=== PATIENT | female | born 1975 | race Caucasian/White ===

== ENCOUNTER 2018-11-01 14:06 | Emergency (ER) | payer OTHER ==
[~2018-11-01] VITALS: Ht 167.6 cm; Wt 72.2 kg
[~2018-11-01 14:06] MED LIST: FLUT1DIS4 INH
--- NOTE | 2018-11-01 14:33 | NUR ---
Brought back directly from Triage. Changed into gowns. Belongings inventoried.
[2018-11-01 15:08] LABS: BASOPHILS % (AUTO) 0.2 % (0-1); EOSINOPHILS # (AUTO) 0.2 X10'3 (0-0.9); EOSINOPHILS % (AUTO) 2.1 % (0-6); HEMATOCRIT 37.3 % (35.0-45.0); HEMOGLOBIN 11.9 g/dl (12.0-16.0); LYMPHOCYTES # (AUTO) 2.7 X10'3 (1.1-4.8); LYMPHOCYTES % (AUTO) 29.1 % (21-51); MEAN CORPUSCULAR HEMOGLOBIN 21.5 PG (27.0-31.0); MEAN CORPUSCULAR HGB CONC 31.8 g/dL (33.0-36.5); MEAN CORPUSCULAR VOLUME 67.6 FL (78-98); MEAN PLATELET VOLUME 8.6 FL (7.4-10.4); MONOCYTES # (AUTO) 0.5 X10'3 (0-0.9); NEUTROPHILS # (AUTO) 5.9 X10'3 (1.8-7.7); NEUTROPHILS % (AUTO) 63.6 % (42-75); PLATELET COUNT 373 X10'3 (140-440); RED BLOOD COUNT 5.52 X10'6 (4.20-5.60); RED CELL DISTRIBUTION WIDTH 17.5 % (11.5-14.5); WHITE BLOOD COUNT 9.3 X10'3 (4.5-11.0)
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
[2018-11-01 15:13] LABS: ALANINE AMINOTRANSFERASE 17 U/L (12-78); ALBUMIN 3.9 G/DL (3.4-5.0); ALBUMIN/GLOBULIN RATIO 1.1 (1.1-1.5); ALKALINE PHOSPHATASE 57 IU/L (46-116); ANION GAP 10 (8-16); ASPARTATE AMINO TRANSFERASE 14 U/L (10-37); BILIRUBIN,TOTAL 0.4 MG/DL (0.1-1.0); BLOOD UREA NITROGEN 14 MG/DL (7-18); BUN/CREATININE RATIO 18.9 (6.6-38.0); CALCIUM 8.7 MG/DL (8.5-10.1); CHLORIDE 103 MMOL/L (99-107); CREATININE 0.74 MG/DL (0.40-0.90); GLUCOSE 90 MG/DL (70-104); POTASSIUM 3.3 MMOL/L (3.5-5.1); SODIUM 141 MMOL/L (135-145); TOTAL CARBON DIOXIDE 27.6 MMOL/L (24-32); TOTAL PROTEIN 7.5 G/DL (6.4-8.2); eGFR 86 ML/MIN
[2018-11-01 15:21] LABS: ETHANOL < 0.010 GM/DL (0.0-0.010)
[2018-11-01 15:47] LABS: ANISOCYTOSIS 1+; MICROCYTOSIS 2+; PLATELET ESTIMATE NORMAL
[2018-11-01 15:48] LABS: ELLIPTOCYTES 1+; SCHISTOCYTES 1+; TEAR DROP CELLS 1+
[2018-11-01 16:02] LABS: URINE HCG NEGATIVE (NEG)
[2018-11-01 16:09] LABS: URINE AMPHETAMINE SCREEN NEGATIVE (Neg); URINE BARBITUATE SCREEN NEGATIVE (Neg); URINE BENZODIAZEPINES SCREEN NEGATIVE (Neg); URINE CANNABINOID SCREEN NEGATIVE (Neg); URINE COCAINE SCREEN NEGATIVE (Neg); URINE METHADONE SCREEN NEGATIVE (Neg); URINE OPIATE SCREEN NEGATIVE (Neg); URINE PHENCYCLIDINE SCREEN NEGATIVE (Neg)
--- NOTE | 2018-11-01 16:13 | NUR ---
Participated in the admission process without event. Family members with patient, sitting around bed. Patient states "I cannot handle what's going on with me. If I don't get some help soon I don't know what I'll do. I can't say I won't try to hurt myself."
[2018-11-01 16:16] LABS: CLARITY,URINE SLIGHTLY CLOUDY (Clear); COLOR,URINE STRAW (Yellow); GLUCOSE, URINE NEGATIVE (Neg); KETONES,URINE NEGATIVE (Neg); LEUKOCYTE ESTERASE ,URINE NEGATIVE (Neg); NITRITES, URINE NEGATIVE (Neg); OCCULT BLOOD,URINE TRACE-LYSED (Neg); PROTEIN,URINE NEGATIVE (Neg); UROBILINOGEN,URINE 0.2 E.U/dL (0.2-1.0)
[2018-11-01 16:18] LABS: UA COLLECTION TYPE CLN CATCH MIDSTREAM
[2018-11-01 16:27] LABS: BACTERIA,URINE FEW /HPF (Neg); MUCUS STRANDS MODERATE /LPF (Neg); RBC,URINE 0-2 /HPF (0-2); SQUAMOUS EPITHELIAL CELL,UR MODERATE /LPF (FEW); WBC,URINE 0-4 /HPF (0-4)
[2018-11-01 18:03] VITALS: BP 119/70
== END 2018-11-01 20:08 | disposition home or self-care (01) ==
LOC: ER 14:06
DX: F22 Delusional disorders (principal); F79 Unspecified intellectual disabilities; R07.89 Other chest pain; R06.02 Shortness of breath; J45.909 Unspecified asthma, uncomplicated; Z79.899 Other long term (current) drug therapy
CPT/HCPCS: 36415; 80053; 80305; 80320; 81001; 81025; 84443; 85025; 99284

== ENCOUNTER 2021-12-21 11:31 | Emergency (ER) | payer MEDICAID, OTHER ==
[~2021-12-21] VITALS: Ht 167.6 cm; Wt 75.0 kg
[2021-12-21 11:57] LABS: BASOPHILS # (AUTO) 0.1 X10'3 (0-0.2); BASOPHILS % (AUTO) 0.8 % (0-1); EOSINOPHILS # (AUTO) 0.2 X10'3 (0-0.9); EOSINOPHILS % (AUTO) 2.4 % (0-6); HEMATOCRIT 33.1 % (35.0-45.0); HEMOGLOBIN 10.6 g/dl (12.0-16.0); LYMPHOCYTES % (AUTO) 23.6 % (21-51); MEAN CORPUSCULAR HEMOGLOBIN 20.4 PG (27.0-31.0); MEAN CORPUSCULAR VOLUME 63.7 FL (78-98); MONOCYTES # (AUTO) 0.6 X10'3 (0-0.9); MONOCYTES % (AUTO) 7.1 % (2-12); NEUTROPHILS # (AUTO) 5.7 X10'3 (1.8-7.7); NEUTROPHILS % (AUTO) 66.1 % (42-75); PLATELET COUNT 362 X10'3 (140-440); RED CELL DISTRIBUTION WIDTH 17.8 % (11.5-14.5); WHITE BLOOD COUNT 8.6 X10'3 (4.5-11.0)
[2021-12-21 12:11] LABS: ALANINE AMINOTRANSFERASE 34 U/L (12-78); ALBUMIN 3.9 G/DL (3.4-5.0); ALBUMIN/GLOBULIN RATIO 1.2 (1.1-1.5); ALKALINE PHOSPHATASE 57 IU/L (46-116); ANION GAP 12 (8-16); ASPARTATE AMINO TRANSFERASE 31 U/L (10-37); BILIRUBIN,TOTAL 0.7 MG/DL (0.1-1.0); BLOOD UREA NITROGEN 10 MG/DL (7-18); BUN/CREATININE RATIO 13.2 (6.6-38.0); CALCIUM 9.1 MG/DL (8.5-10.1); CHLORIDE 105 MMOL/L (99-107); CREATININE 0.76 MG/DL (0.40-0.90); GLUCOSE 91 MG/DL (70-104); POTASSIUM 4.1 MMOL/L (3.5-5.1); SODIUM 143 MMOL/L (135-145); TOTAL CARBON DIOXIDE 26.2 MMOL/L (24-32); TOTAL PROTEIN 7.2 G/DL (6.4-8.2); eGFR 82 ML/MIN
[2021-12-21 12:20] LABS: ETHANOL < 0.010 GM/DL (0.0-0.010)
[2021-12-21 12:28] LABS: ANISOCYTOSIS 1+; MICROCYTOSIS 2+; PLATELET ESTIMATE NORMAL
[2021-12-21 12:29] LABS: ELLIPTOCYTES 1+; HYPOCHROMASIA 1+; LARGE PLATELETS FEW
[2021-12-21 12:30] LABS: TEAR DROP CELLS FEW
[2021-12-21 12:32] LABS: URINE HCG NEGATIVE (NEG)
[2021-12-21 12:44] LABS: URINE AMPHETAMINE SCREEN POSITIVE (Neg); URINE BARBITUATE SCREEN NEGATIVE (Neg); URINE BENZODIAZEPINES SCREEN NEGATIVE (Neg); URINE CANNABINOID SCREEN NEGATIVE (Neg); URINE COCAINE SCREEN NEGATIVE (Neg); URINE METHADONE SCREEN NEGATIVE (Neg); URINE OPIATE SCREEN NEGATIVE (Neg); URINE PHENCYCLIDINE SCREEN NEGATIVE (Neg)
[2021-12-21 12:45] LABS: CLARITY,URINE SLIGHTLY CLOUDY (Clear); COLOR,URINE YELLOW (Yellow); GLUCOSE, URINE NEGATIVE (Neg); KETONES,URINE 15 mg/dl (Neg); LEUKOCYTE ESTERASE ,URINE NEGATIVE (Neg); NITRITES, URINE NEGATIVE (Neg); OCCULT BLOOD,URINE NEGATIVE (Neg); PH,URINE 5.5 (4.8-8.0); PROTEIN,URINE TRACE mg/dl (Neg); UROBILINOGEN,URINE 0.2 E.U/dL (0.2-1.0)
[2021-12-21 12:47] LABS: UA COLLECTION TYPE CLN CATCH MIDSTREAM
[2021-12-21 12:57] LABS: SQUAMOUS EPITHELIAL CELL,UR MANY /LPF (FEW)
[2021-12-21 12:58] LABS: BACTERIA,URINE 1+ /HPF (Neg); MUCUS STRANDS MODERATE /LPF (Neg); RBC,URINE NONE SEEN /HPF (0-2)
--- NOTE | 2021-12-21 14:23 | NUR ---
RECEIVED PT TO BED 25. PT AMBULATED INDEPENDENTLY WITH PCT. PT HAS PERSONAL BELONGINGS. Addendum: 12/22/21 at 1042 by DPHILLIPS PT. AWAKE LYING IN BED RESTING QUIETLY. STAFF WILL CONTINUE TO MONITOR FOR SAFETY.
--- NOTE | 2021-12-21 14:53 | NUR ---
Faxed Packet to [facility].
--- NOTE | 2021-12-21 14:54 | NUR ---
One on one assessment with patient. Pt presents tearful and slightly disorganized. Pt able to identify, date, year and president. Pt denies sucidal thoughts, but then states "if things don't get better." Pt tells junior technical writer "there was so much I wanted to say, but couldn't." "I just need to see the same people and not all the people." Pt states she went to her doctor trying to get anxiety medication, but then saw someone different. This is what pt was referring to. Pt is tearful and keeps repeating "there is a lot going on." "I don't want to keep saying, the more I say the worse it gets." Pt denies A/VH. Pt states she "used to take" and antidepressant. No meds for "a long time."
[2021-12-21] MEDS ORDERED: NO HOME MEDS (15:08)
--- NOTE | 2021-12-21 15:19 | NUR ---
Refaxed packet (did not go through) to [facility].
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
--- NOTE | 2021-12-21 16:30 | NUR ---
Pt resting comfortably, respirations even and unlabored.
--- NOTE | 2021-12-21 17:30 | NUR ---
Pt sitting on side of bed, no distress noted.
--- NOTE | 2021-12-21 19:00 | NUR ---
Pt resdting quietly in bed on left side at this time, no distress noted.
--- NOTE | 2021-12-21 21:05 | NUR ---
Pt ambulated from room to restroom without issue, no distress noted.
--- NOTE | 2021-12-21 23:03 | NUR ---
Pt asleep in bed at this time, no acute ditress noted.
--- NOTE | 2021-12-22 01:00 | NUR ---
Pt sleeping, no acute distress noted.
--- NOTE | 2021-12-22 03:30 | NUR ---
Pt asleep at this time, no acute distress noted.
--- NOTE | 2021-12-22 05:26 | NUR ---
Patient laying in the bed calmy and quietly with eyes open, no acute distress noted.
--- NOTE | 2021-12-22 06:00 | NUR ---
PT. CARE ASSUMED FROM JELANI CLARK. PT. LYING QUIETLY WITH EYES OPENED NO DISTRESS NOTED. STAFF WILL CONTINUE TO MONITOR FOR SAFETY.
--- NOTE | 2021-12-22 08:30 | NUR ---
BREAKFAST TRAY RECEIVED.
--- NOTE | 2021-12-22 08:59 | NUR ---
PT. AAOX4 THIS SHIFT DENIES ANY CURRENT SI/HI OR A/V HALLUCINATIONS. PT. STATES,"I'M GOING THROUGH ALOT AND I WAS TRYING TO WORK IT OUT BY MYSELF". PT. INSTRUCTED SHE WILL BE EVALUTAED BY [facility] THIS MORNING TO TALK ABOUT HER DISPOSITION. PT. STATED AN UNDERSTANDING. NO SCHEDULED MORNING MEDICATIONS. DENIES ANY OTHER COMPLAINTS AT THIS TIME. STAFF WILL CONTINUE TO MONITOR FOR SAFETY.
--- NOTE | 2021-12-22 11:52 | NUR ---
VISIBLE ON THE UNIT RESTING QUIETLY .
--- NOTE | 2021-12-22 12:39 | NUR ---
PATIENT IN VIEW OF RN.RESTING QUIETLY.
--- NOTE | 2021-12-22 14:04 | NUR ---
PT. RESTING QUIETLY WITH EYES CLOSED NO DISTRESS NOTED.
--- NOTE | 2021-12-22 14:15 | NUR ---
NURSE TO NURSE COMPLETED WITH MONSTER CLARK FROM [facility]. STATES HE WILL PRESENT PATIENT CASE TO THE DOCTOR AND WILL CALL BACK WITH AN ANSWER. REQUESTED COVID RESULTS FAXED TO MONSTER CLARK AT [phone].
--- NOTE | 2021-12-22 15:05 | NUR ---
PT. ACCEPTED AT [facility] BY DR. JAY PICK-UP SCHEDULED FOR 16:45 TODAY. NURSE TO NURSE WITH My AMBER O NISHANT [id number] Addendum: 12/22/21 at 1507 by [facility] PHONE #[phone]
--- NOTE | 2021-12-22 17:30 | NUR ---
PT. DISCHARGED TO [facility] AT THIS TIME. TRANSPORT HERE ON THE UNIT AND SECURITY NOTIFIED. NO DISCHARGE PAPERWORK GIVEN AT THIS TIME D/T DR. TAFOYA IN A CODE. PT. HAD NO SCHEDULED MEDICATIONS AND FOLLOW-UP APPOINTMENTS. PT. TRANSFERRED TO [facility] UNDER THE CARE OF DR. JAY. PT. HAS RECEIVED ALL PERSONAL BELONGINGS. PT. ESCORTED OFF THE UNIT BY KICK PRESS SETTER WITH COLLAR SETTER OVERLOCK.
[2021-12-22 17:52] VITALS: BP 107/69
== END 2021-12-22 17:57 ==
LOC: ER 11:32
DX: R45.851 Suicidal ideations (principal); Z20.822 Contact with and (suspected) exposure to COVID-19; J45.909 Unspecified asthma, uncomplicated; F15.90 Other stimulant use, unspecified, uncomplicated; Z72.89 Other problems related to lifestyle
CPT/HCPCS: 36415; 80053; 80305; 80320; 81001; 81025; 84443; 85008; 85025; 87635; 99285; C9803

== ENCOUNTER 2022-10-20 08:54 | Outpatient (CLI) | payer MEDICAID ==
[~2022-10-20] VITALS: Ht 167.6 cm; Wt 70.3 kg
[~2022-10-20 08:54] MED LIST changes: +BREX2TAB PO; +BUPR200T41 PO; -FLUT1DIS4 INH; +NO HOME MEDS; +TRAZ-256 PO
[2022-10-20 09:21] LABS: TOTAL HEMOGLOBIN 11.8 G/dl (12.0-16.0)
[2022-10-20] MEDS ORDERED: albuterol 2.5 MG/3 ML nebule NEB ONE (09:40)
== END 2022-10-20 23:59 | disposition home or self-care (01) ==
LOC: RT 08:54
PROVIDERS: ATTEND Family Medicine
DX: R94.2 Abnormal results of pulmonary function studies (principal); J45.30 Mild persistent asthma, uncomplicated
CPT/HCPCS: 85018; 94060; 94727; 94729; 94760